=== PATIENT | female | born 1990 | race Caucasian/White ===

== ENCOUNTER → 2017-06-05 | Outpatient (CLI) | payer BC | LOC: OD 11:04 | PROVIDERS: ATTEND Nurse Practitioner Primary Care | DX: N91.2 Amenorrhea, unspecified (principal); N93.8 Other specified abnormal uterine and vaginal bleeding | CPT/HCPCS: 36415; 84702 ==

== ENCOUNTER → 2017-09-17 | Outpatient (CLI) | payer BC | LOC: OD 13:51 | PROVIDERS: ATTEND Nurse Practitioner Primary Care | DX: O20.0 Threatened abortion (principal); Z3A.00 Weeks of gestation of pregnancy not specified | CPT/HCPCS: 36415; 84702 ==

== ENCOUNTER → 2017-09-20 | Outpatient (CLI) | payer BC | LOC: OD 09:35 | PROVIDERS: ATTEND Nurse Practitioner Primary Care | DX: O20.0 Threatened abortion (principal); Z3A.00 Weeks of gestation of pregnancy not specified | CPT/HCPCS: 36415; 84702 ==

== ENCOUNTER 2018-04-29 00:37 | Inpatient (IN) | payer BC, MEDICAID ==
[2018-04-29 01:20] LABS: APPEARANCE,URINE CLOUDY; BILIRUBIN,URINE NEGATIVE (NEGATIVE); COLOR,URINE YELLOW; GLUCOSE, URINE NEGATIVE (NEGATIVE); KETONES,URINE NEGATIVE (NEGATIVE); LEUKOCYTE ESTERASE,URINE LARGE (NEGATIVE); NITRITE,URINE NEGATIVE (NEGATIVE); PROTEIN,URINE NEGATIVE (NEGATIVE); URINE SPECIFIC GRAVITY 1.005; UROBILINOGEN,URINE NEGATIVE mg/dL (<2.0)
[2018-04-29] MEDS ORDERED: RINGERS SOLUTION,LACTATED 1,000 ML IV ONE (01:25)
[2018-04-29] MEDS ORDERED: CEFAZOLIN 2 GM/D5W RTU 2 GM/50 ML RTUPB IV ONE ×2 (01:25→03:19)
[2018-04-29] MEDS ORDERED: PENICILLIN G POTASSIUM 5,000,000 UNIT in DEXTROSE 5%-WATER 100 ML IV ONE (01:25)
[2018-04-29 01:26] LABS: URINE AMPHETAMINES SCREEN NEGATIVE; URINE BARBITURATES SCREEN NEGATIVE; URINE BENZODIAZEPINES SCREEN NEGATIVE; URINE COCAINE SCREEN NEGATIVE; URINE MARIJUANA (THC) SCREEN NEGATIVE; URINE METHADONE SCREEN NEGATIVE; URINE PHENCYCLIDINE SCREEN NEGATIVE
[2018-04-29] MEDS ORDERED: CEFAZOLIN INJ 1 GM VIAL IV ONE (01:36)
--- NOTE | 2018-04-29 01:37 | Admission Physical ---
Datetime Report Generated by CPN: 04/29/2018 01:36 CURRENT ADMISSION Chief Complaint: Suspected Ruptured Membranes Indication for Induction: Not Applicable Admit Impression : Term, Intrauterine ; No Active Labor; Ruptured Membranes Admit Plan: Admit to Unit; Initiate Section Protocol ALLERGIES Medication Allergies: Yes Medication Allergies: hydrocodone bitartrate (12/14/2012) Latex: No Latex Allergies OBSTETRICAL HISTORY EDC: 05/10/2018 00:00 : 3 Term: 2 Ectopic: 0 Livin Cesareans: 2 VBACs: 0 Multiple Births: 0 Gestational Diabetes: Yes Rh Sensitization: No Incompetent Cervix: No KAREN: No Infertility: No ART Treatment: No Uterine Anomaly: No IUGR: No Hx Previous C/S: Yes Macrosomia: No Hx Loss/Stillborn: No PIH: No Hx : No Placenta Previa/Abruption: No Depression/PP Depression: Yes PTL/PROM: No Post Hemorrhage: No Current Procedures: BPP SEE RECORDS Alcohol: No Marijuana : No Cocaine: No Other Illicit Drugs: No Cigarettes: Never Smoker. [id number] MEDICAL HISTORY Diabetes: No Diabetes Type: Gestational Diabetes Blood Transfusion: No Pulmonary Disease (Asthma, TB): Yes Breast Disease: No Hypertension: No Technical Developer Surgery: Yes Heart Disease: No Hosp/Surgery: Yes Autoimmune Disorder: Yes Anesthetic Complications: No Kidney Disease: No Abnormal Pap Smear: No Neuro/Epilepsy: No Psychiatric Disorders: Yes Other Medical Diseases: No Hepatitis/Liver Disease: No Significant Family History: No Varicosities/Phlebitis: No Trauma/Violence : No Thyroid Dysfunction: Yes Medical History Comments: hoshimoto disease, anxiety, depression, depression, hyperthyroidism, previous x2 INFECTIOUS HISTORY Gonorrhea: No Genital Herpes: No Chlamydia: No Tuberculosis: No Syphilis: No Hepatitis: No HIV/AIDS Exposure: No Rash or Viral Illness: No HPV: No PHYSICAL EXAM General: Normal HEENT: Normal Neurologic: Normal Thyroid: Deferred Heart: Normal Lungs: Normal Breast: Deferred Back: Normal Abdomen: Normal Genitourinary Exam: Normal Extremities: Normal DTRs: Normal Pelvic Type: Adequate Vital Signs: Reviewed VAGINAL EXAM Dilatation: 1 Effacement: 25 Station: -4 Contraction Comments: none MEMBRANES Membranes: Ruptured Amniotic Fluid Color: Clear FETUS A EGA: 38.3 Monitoring: External US FHR- Baseline: 155 Variability: Moderate 6-25bpm Accelerations: 15X15 Decelerations: None FHR Category: Category I Presentation: Vertex Admit Comment: 27yo with history of 2 prior sections presents for possible SROM. A2GDM on Glyburide. Pt with h/o C/S due to Arrest of Descent and also 2nd for macrosomia. She also reports that this is a big baby. GBS unknown due to no records available from [facility] at this time. Will obtain records when office opens or computer fixed. Undecided regarding BTL therefore no BTL today. PCN for GBS unknown. Pt is not betito. Last intake was 1130 and was kitkats. S/w anesthesia will await NPO and proceed with section at 0500 - sooner if active labor. reassuring FWB and CAT I FHRT at this time. PLANS FOR LABOR AND DELIVERY Pain Management: Spinal Feeding Preference: Breast Benefit of Breast Feed Discussed: Yes Circumcision: No INFORMED CONSENT Informed Consent Obtained: Section Delivery; Risks, Benefits and Alternatives Discussed Signature: with User ID: [email or web address]
[2018-04-29] MEDS ORDERED: PENICILLIN G-K 5 MILLION UNIT VIAL ONE (01:48)
[2018-04-29 01:50] LABS: ABSOLUTE EOSINOPHILS # (AUTO) 0.1 10^3/uL (0.0-0.6); ABSOLUTE LYMPHOCYTES (AUTO) 1.7 10^3/uL (0.5-4.7); ABSOLUTE MONOCYTES (AUTO) 0.6 10^3/uL (0.1-1.4); ABSOLUTE NEUT (AUTO) 3.8 10^3/uL (1.7-8.2); BASOPHILS % (AUTO) 0.5 % (0-2); EOSINOPHILS % (AUTO) 1.5 % (0-6); HEMATOCRIT 26.9 % (36.0-47.0); HEMOGLOBIN 8.7 g/dL (12.0-15.5); LYMPHOCYTES % (AUTO) 26.9 % (13-45); MEAN CORPUSCULAR HEMOGLOBIN 22.4 pg (27.0-33.4); MEAN CORPUSCULAR HGB CONC 32.5 g/dL (32.0-36.0); MEAN CORPUSCULAR VOLUME 69 fl (80-97); MONOCYTES % (AUTO) 9.1 % (3-13); PLATELET COUNT 197 10^3/uL (150-450); RED BLOOD COUNT 3.91 10^6/uL (3.72-5.28); RED CELL DISTRIBUTION WIDTH 19.2 % (11.5-14.0); TOTAL CELLS COUNTED % (AUTO) 100 %; WHITE BLOOD COUNT 6.2 10^3/uL (4.0-10.5)
[2018-04-29] MEDS: RINGERS SOLUTION,LACTATED 1,000 ML IV PRN ×3 (02:08→15:43)
[2018-04-29] MEDS ORDERED: CEFAZOLIN 1 GM/D5W RTU 1 GM/50 ML RTUPB IV ONE (03:18)
[2018-04-29] MEDS ORDERED: CITRIC ACID/SODIUM CITRATE ORAL SOLN 15 ML UDCUP ONE (03:18)
[2018-04-29] MEDS ORDERED: BUPIVACAINE HCL 0.25 % INJ/PF (2.5 MG/1 ML) 30 ML VIAL ONE (03:19)
[2018-04-29] MEDS ORDERED: EPHEDRINE SULFATE INJ 50 MG/1 ML AMPULE ONE (03:19)
[2018-04-29] MEDS ORDERED: FENTANYL/BUPIVACAINE/NS/PF 300 MCG/150 ML RTUINJ EPI ONE (03:19)
[2018-04-29] MEDS ORDERED: LIDOCAINE 2% INJ-PF (20 MG/ML) 10 ML AMPUL ONE (03:19)
[2018-04-29] MEDS ORDERED: PENICILLIN G POTASSIUM 2,500,000 UNIT in DEXTROSE 5%-WATER 50 ML IV SCH (05:26)
[2018-04-29] MEDS ORDERED: FENTANYL CITRATE INJ/PF 100 MCG/2 ML AMPUL IV PRN ×3 (05:46)
[2018-04-29] MEDS ORDERED: PROMETHAZINE HCL INJ 25 MG/1 ML VIAL IV PRN ×2 (05:46→07:06)
[2018-04-29] MEDS ORDERED: MEPERIDINE HCL/PF INJ 25 MG/1 ML DISP.SYRIN IV PRN (05:46)
[2018-04-29] MEDS ORDERED: DIPHENHYDRAMINE HCL 50 MG/ML VIAL IV PRN (05:46)
--- NOTE | 2018-04-29 06:12 | Warning Signs in Babies ---
VOD Warning Signs Datetime Report Generated by [facility]: 04/29/2018 06:12 VOD#608 -Warning Signs in Babies: Needs to be viewed. (04/29/2018 00:57:Didi Ha RN)
[2018-04-29] MEDS ORDERED: BUPIVACAINE HCL 0.5 % INJ/PF 30 ML SDV ONE (06:26)
[2018-04-29] MEDS ORDERED: ACETAMINOPHEN 325 MG TABLET PO PRN (07:06)
[2018-04-29] MEDS ORDERED: SIMETHICONE 80 MG TAB.CHEW PO PRN (07:06)
[2018-04-29] MEDS ORDERED: OXYTOCIN/NORMAL SALINE 20 UNIT/1,000 ML RTUINJ IV PRN (07:06)
[2018-04-29] MEDS ORDERED: OXYCODONE-ACETAMINOPHEN 5-325 MG TABLET PO PRN (07:06)
[2018-04-29] MEDS ORDERED: MEASLES,MUMPS&RUBELLA VACC/PF 0.5 ML VIAL SUBCUT PRN (07:06)
[2018-04-29] MEDS ORDERED: DIPH/PERTUSS(ACELL)/TETANUS VAC/PF 0.5 ML SYR (>=10YO) IM PRN (07:06)
[2018-04-29] MEDS ORDERED: ACETAMINOPHEN 1,000 MG/100 ML RTUPB IV PRN (07:06)
[2018-04-29] MEDS ORDERED: HYDROMORPHONE HCL INJ/PF 2 MG/ML AMPULE IV PRN (07:06)
--- NOTE | 2018-04-29 07:06 | Brief Operative Note ---
BRIEF OPERATIVE REPORT DATE OF SURGERY: 04/29/18 TIME OF SURGERY: 07:00 PREOPERATIVE DIAGNOSIS: A2GDM, PUND at 38+2ega, H/o section x 2, Macrosomia, PROM. POSTOPERATIVE DIAGNOSIS: CARRIE- delivered, Significant pelvic adhesive disease SURGEON: BRII RAMIREZ FINDINGS: anterior abdominal wall adhered to anterior uterus fundus and bladder adhered to lower uterine segment. Dense adhesions. VMI, Apgars 9/9, time of 0551, weight 10#5oz. IVF 600ml, UOP 300ml, 3 grams of Ancef COMPLICATIONS: none ESTIMATED BLOOD LOSS: 500ml TISSUE REMOVED OR ALTERED: placenta and cord not sent to pathology TECHNICAL PROCEDURE: Repeat section, Scar revision
--- NOTE | 2018-04-29 07:16 | Operative Report ---
Operative Report DATE OF SURGERY: 04/29/18 PREOPERATIVE DIAGNOSIS: A2GDM, PUND at 38+2ega, H/o section x 2, Macro somia, PROM. POSTOPERATIVE DIAGNOSIS: CARRIE- delivered, Significant pelvic adhesive disease OPERATION: Repeat section, Scar revision SURGEON: BRII RAMIREZ ANESTHESIA: Epidural TISSUE REMOVED OR ALTERED: placenta and cord not sent to pathology COMPLICATIONS: None ESTIMATED BLOOD LOSS: 804 INTRAOPERATIVE FINDINGS: anterior abdominal wall adhered to anterior uterus fundus and bladder adhered to lower uterine segment. Dense adhesions. VMI, Apgars 9/9, time of 0551, weight 10#5oz. IVF 600ml, UOP 300ml, 3 grams of Ancef PROCEDURE: Anesthesia: Spinal Anesthesia provider: [Stephanie YOUNGBLOOD, Natasha Daugherty CRNA] Urine output: [300ml] IV fluids: [600ml] Indications: [27yo at 38+2ega presents with premature rupture of membranes and cervix /. She has undecided regarding contraception but does not want a tubal ligation at this time. She has had two prior sections. She was counseled regarding the risks, benefits, alternatives and desires to proceed with planned procedure.] Procedure: The patient was taken to the operating room where epidural anesthesia was obtained and found to be adequate. She was then prepped and draped in the normal sterile fashion and placed in the dorsal supine position with a leftward tilt. A Pfannenstiel skin incision was then made and carried through to the underlying layers of the fascia with the scalpel. The fascia was incised in the midline and the incision extended laterally with the Loo scissors. The superior aspect of the fascial incision was then grasped with Forest clamps elevated and the underlying rectus muscles dissected off [sharply] rectus muscles were also sharply dissected from the underlying dense adhesions to the anterior uterine body. Attention was then turned to the inferior aspect of the fascial incision which in a similar fashion was grasped, tented up with Forest clamps, and the rectus muscles dissected off [sharply]. The rectus muscles were then in the midline and the peritoneum at the amount identified and entered [sharply]. The peritoneal incision was then extended superiorly and inferiorly with good visualization of the bladder. The bladder blade was inserted and the vesicouterine peritoneum identified grasped with Estonian pickups and entered sharply with the Metzenbaum scissors. This incision was then extended laterally with the Metzenbaum scissors and a bladder flap created digitally. The bladder blade was then reinserted and the lower uterine segment incised in a transverse fashion with the scalpel. The uterine incision was then extended bluntly. The bladder blade was removed and the infant's head was delivered from cephalic presentation atraumatically. The nose and mouth were suctioned and the cord doubly clamped and cut. And the infant was handed off to waiting pediatricians. The placenta was then delivered spontaneously and the uterus exteriorized and cleared of all clots and debris. The uterine incision was then repaired with 1- 0 Vicryl in a running locked fashion. A second layer of the same suture was used to obtain hemostasis via imbrication of the initial layer. The bladder flap was then repaired with 3-0 chromic in a running fashion. The uterus was returned to the patient's abdomen and Interceed was placed overlying the uterine incision to prevent adhesions. The gutters were cleared of all clots and debris. All operative sites were noted to be hemostatic. The fascia was reapproximated with 0 Vicryl in a running fashion from each lateral edge to the midline. The skin was closed with 3-0 Monocryl in a running subcuticular fashion with overlying Dermabond for additional dressing as well as wound closure. The patient tolerated the procedure well. Sponge lap needle and instrument counts are correct times 2. 3 g of Ancef were given prior to skin incision. The patient was taken to the recovery area awake and in stable condition.
[2018-04-29] MEDS ORDERED: KETOROLAC TROMETHAMINE INJ/PF 30 MG/1 ML SDV ONE (07:56)
[2018-04-29] MEDS ORDERED: ACETAMINOPHEN 1,000 MG/100 ML RTUPB IV ONE (07:56)
[2018-04-29] MEDS ORDERED: HYDROMORPHONE HCL INJ/PF 2 MG/ML AMPULE ONE (08:59)
[2018-04-29] MEDS ORDERED: KETOROLAC TROMETHAMINE INJ/PF 30 MG/1 ML SDV IV SCH (10:00)
[2018-04-29] MEDS: PRENATAL VITAMIN W DHA CAPSULE PO SCH (11:00)
[2018-04-29] MEDS: DOCUSATE SODIUM 100 MG CAPSULE PO SCH ×2 (11:01→17:11)
[2018-04-29] MEDS ORDERED: DEXAMETHASONE SOD PHOSPHATE INJ 4 MG/1 ML VIAL ONE (12:10)
[2018-04-29] MEDS ORDERED: LIDOCAINE 2% INJ-PF (20 MG/ML) 2 ML AMPUL ONE (12:10)
[2018-04-29] MEDS ORDERED: ONDANSETRON HCL INJ/PF 4 MG/2 ML SDV ONE (12:10)
[2018-04-29] MEDS: KETOROLAC TROMETHAMINE INJ/PF 30 MG/1 ML SDV IV SCH (15:41)
[2018-04-29] MEDS: OXYCODONE-ACETAMINOPHEN 5-325 MG TABLET PO PRN (20:31)
[2018-04-30] MEDS: KETOROLAC TROMETHAMINE INJ/PF 30 MG/1 ML SDV IV SCH ×2 (02:00→08:56)
[2018-04-30] MEDS ORDERED: IBUPROFEN 800 MG TABLET PO SCH (06:00)
[2018-04-30 07:21] LABS: HEMATOCRIT 25.3 % (36.0-47.0); HEMOGLOBIN 8.2 g/dL (12.0-15.5); MEAN CORPUSCULAR HEMOGLOBIN 22.5 pg (27.0-33.4); MEAN CORPUSCULAR HGB CONC 32.4 g/dL (32.0-36.0); MEAN CORPUSCULAR VOLUME 69 fl (80-97); PLATELET COUNT 181 10^3/uL (150-450); RED BLOOD COUNT 3.65 10^6/uL (3.72-5.28); RED CELL DISTRIBUTION WIDTH 19.2 % (11.5-14.0); WHITE BLOOD COUNT 7.1 10^3/uL (4.0-10.5)
--- NOTE | 2018-04-30 08:27 | Delivery Summary ---
Del Sum A-C Datetime Report Generated by CPN: 04/30/2018 08:27 DELIVERY PERSONNEL DELIVERY PERSONNEL: [id number] Delivery Doctor:: Vanesa Marroquin MD Anesthesiologist:: Kendall Brown MD NON DESTRUCTIVE TESTER:: Natasha Monson CRNA Personnel Clerks Supervisor:: Didi Ha RN Neonatal Nurse Practitioner:: Liz Jackson, GRAIN I FARMWORKER Nursery Nurse:: Rach Dumont RN MSN Laser Engineer/PROCESS TANK TENDER: Hailee Willams, Laser Engineer/PROCESS TANK TENDER: Tanya Carney, ST MATERNAL INFORMATION Delivery Anesthesia: Epidural Medications After Delivery: Pitocin Drip 20 Units/1000ml NSS Maternal Complications: Other Complication Details: repeat csection , GDMA2 LABOR SUMMARY EDC: 05/10/2018 00:00 No. Babies in Womb: 1 Attempted: No Labor Anesthesia: Epidural LABOR INFORMATION Reason for Induction: Not Applicable Oxytocin: N/A Group B Beta Strep: unknown Antibiotics # of Doses: 1 Antibiotics Time of Last Dose: 207 Name of Antibiotic Given: PCN Steroids Given: None Reason Steroids Not Administered: Not Applicable MEMBRANES Membranes Rupture Method: Spontaneous Rupture of Membranes: 04/29/2018 00:57 Length of Rupture (hr): 4.90 Amniotic Fluid Color: Clear Amniotic Fluid Amount: Small Amniotic Fluid Odor: Normal STAGES OF LABOR Stage 3 hr: 0 Stage 3 min: 2 VAGINAL DELIVERY Episiotomy: None Laceration #1: None Laceration Extension #1: N/A Laceration Repair: Not Applicable Sponge Count Correct: N/A CSECTION DELIVERY Primary Indication: Repeat Elective CSection Urgency: Non-Scheduled CSection Incidence: Repeat Labor: No Labor Elective: Nonelective CSection Incision: Lower Uterine Transverse BABY A INFORMATION Infant Delivery Date/Time: 04/29/2018 05:51 Method of Delivery: Born in Route : No : N/A Forceps: N/A Vacuum Extraction: N/A Shoulder Dystocia : No PRESENTATION/POSITION BABY A Presentation: Cephalic Cephalic Presentation: Vertex Vertex Position: Left Occipital Anterior Breech Presentation: N/A PLACENTA INFORMATION BABY A Placenta Delivery Time : 04/29/2018 05:53 Placenta Method of Delivery: Manual Removal Placenta Status: Delivered SCORES BABY A Heart Rate 1 min: >100 bpm Resp Effort 1 min: Good Cry Reflex Irritability 1 min: Cough or Sneeze or Pulls Away Muscle Tone 1 min: Active Motion Color 1 min: Body Winner, Extremities Blue Resuscitation Effort 1 min: Tactile Stimulation SCORE 1 MIN: 9 Heart Rate 5 min: >100 bpm Resp Effort 5 min: Good Cry Reflex Irritability 5 min: Cough or Sneeze or Pulls Away Muscle Tone 5 min: Active Motion Color 5 min: Body Winner, Extremities Blue Resuscitation Effort 5 min: N/A SCORE 5 MIN: 9 INFANT INFORMATION BABY A Gestational Age at Delivery: 38.3 Gestational Status: Early Term- 37- 38.6 Weeks Outcome : Liveborn Condition : Stable Infant Sex: Male IDENTIFICATION BABY A Verification Date/Time: 04/29/2018 06:09 Verification Date/Time: 04/29/2018 06:06 ID Band Number: [id number] Mother's Name Verified: Yes Mother's Name Verified: Yes Infant RN Verifying Infant: rn sandrine RN Verifying Infant: Edwin Sandhu RN, RN Additional Verifying Personnel: richy ha WEIGHT/LENGTH BABY A Birthweight (gm): 4755 Infant Weight (lb): 10 Infant Weight (oz): 8 Infant Length (in): 21.00 Infant Length (cm): 53.34 CORD INFORMATION BABY A No. Cord Vessels: 3 Nuchal Cord : N/A Cord Blood Taken: Yes-For Storage (Mom's Blood type +) Infant Suction: Mouth; Nose ASSESSMENT BABY A Infant Complications: None Physical Findings at Delivery: Within Normal Limits Infant Respirations: Appears Normal Skin to Skin: Yes Manager Community Outreach/ALS Called : Yes Infant Care By: Edwin Dumont RN Transferred To: Nursery BABY B INFORMATION : N/A
[2018-04-30] MEDS: PRENATAL VITAMIN W DHA CAPSULE PO SCH (09:05)
[2018-04-30] MEDS: DOCUSATE SODIUM 100 MG CAPSULE PO SCH ×2 (09:05→17:26)
--- NOTE | 2018-04-30 10:51 | PDOC PROGRESS REPORT ---
Subjective-OB Progress Note for:: 04/30/18 - POD #1, doing well, UOB, no complaints, s/p Rpt , , O+, rubella immune Subjective: Hx GDM this Physical Exam (OB) Vital Signs: Temp Pulse Resp BP Pulse Ox 97.4 F 95 16 116/61 99 04/30/18 07:54 04/30/18 07:54 04/30/18 00:00 04/30/18 07:54 04/30/18 07:54 Intake & Output 04/29/18 04/30/18 05/01/18 06:59 06:59 06:59 Intake Total 110 3456 Output Total 1425 Balance 110 2031 Weight 123.1 kg - General General Appearance: Appears well, Alert - PIH/Pre-Eclampsia Clonus: Negative Headache: Absent Epigastric Pain: No Visual Changes: No - Dressing Removed: No Incision: Well Approximated Closure Type: Surgical Glue - Lochia Lochia Amount: Scant < 10 ml Lochia Color: Rubra/Red - Abdomen Description: Soft, Round Hernia Present: No Fundal Description: Firm, Midline Fundal Height: u/u - u/2 - HEENT Eyes: Normal Ears: Normal - Respiratory Respiratory Status: No respiratory distress Breath sounds: Clear - Cardiovascular Rhythm: Regular Heart Sounds: Normal auscultation - Abdominal Inspection: Normal Distension: No distension Tenderness: Nontender Abdominal Notes: +bowel sounds noted - Genitourinary Genitourinary Note: voiding - Extremities Upper extremity: Normal inspection Lower extremities: Edema Calf: Normal, Other - no pain - Neurological Cognition: Normal Orientation: AAOx4 - Psychological Associated symptoms: Normal affect, Normal mood - Skin Skin Temperature: Warm Skin Moisture: Dry Objective-Diagnostic Laboratory: 04/30/18 06:53 04/30/18 06:53 WBC 7.1 RBC 3.65 L Hgb 8.2 L Hct 25.3 L MCV 69 L MCH 22.5 L MCHC 32.4 RDW 19.2 H Plt Count 181 Assessment and Plan(PN) - Assessment and Plan (1) Anemia, Is this a current diagnosis for this admission?: Yes (2) Gestational diabetes mellitus (GDM) controlled on oral hypoglycemic drug Qualifiers: Trimester: third trimester Qualified Code(s): O24.415 - Gestational diabetes mellitus in , controlled by oral hypoglycemic drugs Is this a current diagnosis for this admission?: Yes (3) History of section, low transverse Is this a current diagnosis for this admission?: Yes (5) Premature rupture of membranes Qualifiers: PROM gestational age: full term Is this a current diagnosis for this admission?: Yes (6) Status post repeat low transverse section Is this a current diagnosis for this admission?: Yes - Time Spent with Patient Time with patient: Less than 15 minutes Medications reviewed and adjusted accordingly: Yes - Disposition Anticipated Discharge: Home Within: within 48 hours
[2018-04-30] MEDS: FERROUS SULFATE 325 MG TABLET PO SCH (11:32)
[2018-04-30] MEDS: IBUPROFEN 800 MG TABLET PO SCH ×2 (17:25→21:00)
[2018-04-30] MEDS: OXYCODONE-ACETAMINOPHEN 5-325 MG TABLET PO PRN (23:59)
[2018-05-01] MEDS: IBUPROFEN 800 MG TABLET PO SCH ×2 (03:00→09:05)
[2018-05-01] MEDS: PRENATAL VITAMIN W DHA CAPSULE PO SCH (09:04)
[2018-05-01] MEDS: FERROUS SULFATE 325 MG TABLET PO SCH (09:05)
[2018-05-01] MEDS: DOCUSATE SODIUM 100 MG CAPSULE PO SCH (09:05)
--- NOTE | 2018-05-01 12:29 | PDOC DISCHARGE SUMMARY ---
Final Diagnosis Discharge Date: 05/01/18 - Final Diagnosis (1) Status post repeat low transverse section Is this a current diagnosis for this admission?: Yes (2) Macrosomia Is this a current diagnosis for this admission?: Yes (3) Gestational diabetes mellitus (GDM) controlled on oral hypoglycemic drug Is this a current diagnosis for this admission?: Yes (4) History of section, low transverse Is this a current diagnosis for this admission?: Yes (5) Premature rupture of membranes Is this a current diagnosis for this admission?: Yes (6) Anemia complicating , third trimester Is this a current diagnosis for this admission?: Yes Discharge Data - Discharge Medication Prescriptions: Oxycodone HCl/Acetaminophen [Percocet 5-325 mg Tablet] 2 tab PO Q4HP PRN #20 tablet PRN Reason: For Pain Scale 3-5 Ibuprofen [Motrin 800 mg Tablet] 800 mg PO Q8HP PRN #30 tablet PRN Reason: Abdominal Cramping Docusate Sodium [Colace 100 mg Capsule] 100 mg PO BID #60 capsule Ferrous Sulfate [Feosol 325 mg Tablet] 325 mg PO BID #60 tablet Vit/Dha [ Multi + Dha Capsule] 1 cap PO DAILY #60 capsule Home Medications: Docusate Sodium [Colace 100 mg Capsule] 100 mg PO BID #60 capsule 05/01/18 Ferrous Sulfate [Feosol 325 mg Tablet] 325 mg PO BID #60 tablet 05/01/18 Ibuprofen [Motrin 800 mg Tablet] 800 mg PO Q8HP PRN #30 tablet 05/01/18 Oxycodone HCl/Acetaminophen [Percocet 5-325 mg Tablet] 2 tab PO Q4HP PRN #20 tablet 05/01/18 Vit/Dha [ Multi + Dha Capsule] 1 cap PO DAILY #60 capsule 05/01/18 Reason(s) for Admission: PROM Procedures: Ultrasound Intrapartum Procedure(s): : Low Cervical, Transverse - Diagnosis Test Laboratory: Temp Pulse Resp BP Pulse Ox 98.2 F 84 18 126/68 H 99 05/01/18 07:38 05/01/18 07:38 05/01/18 07:38 05/01/18 07:38 05/01/18 07:38 04/29/18 04/29/18 04/30/18 00:44 01:37 06:53 RBC 3.91 3.65 L Hgb 8.7 L 8.2 L Hct 26.9 L 25.3 L Urine Opiates Screen NEGATIVE - Discharge information/Instructions Discharge Activity: Activity As Tolerated, Balance Activity w/Rest, No Lifting/Push/Pulling, Pelvic Rest, No tub bath, Walk Frequently Discharge Diet: As Tolerated, Regular Disposition: HOME, SELF-CARE Follow up with: [facility] in: 1, Weeks - incision check
[2018-05-01 12:42] VITALS: BP 130/68
== END 2018-05-01 14:59 | disposition home or self-care (01) | DRG 788 ==
LOC: LC 00:37 → LR 01:28 → 2S 09:37
PROVIDERS: ADMIT Student in an Organized Health Care Education/Training Program; ATTEND Student in an Organized Health Care Education/Training Program
PROC: 10D00Z1 Extraction of Products of Conception, Low, Open Approach (ICD-10-PCS; principal; 2018-04-29)
DX: O34.211 Maternal care for low transverse scar from previous cesarean delivery (principal); N85.8 Other specified noninflammatory disorders of uterus; O99.284 Endocrine, nutritional and metabolic diseases complicating childbirth; E05.90 Thyrotoxicosis, unspecified without thyrotoxic crisis or storm; O99.52 Diseases of the respiratory system complicating childbirth; J45.909 Unspecified asthma, uncomplicated; O24.425 Gestational diabetes mellitus in childbirth, controlled by oral hypoglycemic drugs; O62.1 Secondary uterine inertia; O36.63X0 Maternal care for excessive fetal growth, third trimester, not applicable or unspecified; O42.02 Full-term premature rupture of membranes, onset of labor within 24 hours of rupture; O99.214 Obesity complicating childbirth; O99.344 Other mental disorders complicating childbirth; F41.8 Other specified anxiety disorders; E66.9 Obesity, unspecified; Z3A.38 38 weeks gestation of pregnancy; Z37.0 Single live birth
CPT/HCPCS: 1961; 36415; 80307; 81001; 84112; 85025; 85027; 86592; 86850; 86900; 86901; 94799; J0131; J0690; J1100; J1170; J1885; J2405; J2540; J3010; J3490; J7120

== ENCOUNTER 2019-12-20 18:46 | Emergency (ER) | payer BC, MEDICAID ==
[2019-12-20] MEDS ORDERED: ACETAMINOPHEN 325 MG TABLET PO ONE ×2 (19:31)
[2019-12-20] MEDS ORDERED: NORMAL SALINE 1000 ML 1,000 ML IV ONE (19:40)
--- NOTE | 2019-12-20 19:43 | ER Document Report ---
ED General - General Stated Complaint: COUGH, CONGESTION, CHILLS Primary Care Provider: BRII RAMIREZ MD [Primary Care Provider] - Follow up as needed Notes: Patient is a 28-year-old white female with a history of asthma Mary's and 3 prior C-sections who presents the emergency department with a chief complaint of of fever chills and cough. She reports couple days ago she started feeling generally unwell was achy and fatigued. She states that she developed chills and went home from work. She states that she is had fevers that wax and wane. She has been taking Tylenol Cold and sinus. She states she was feeling better today around 1 PM and went to work. She states while at work she started feeling ill again with chills and decided to leave. She states her last dose of Tylenol was 11 AM this morning. She states given the persistent nature of sym ptoms she decided to present for evaluation. She denies any recent travel or known sick contacts. States no one else at work is ill. She works with the public at a restaurant. She denies any chest pain or abdominal pain. Denies any vomiting or diarrhea. Denies any urinary complaints or changes. No rashes. She does admit to a mild frontal headache that waxes and wanes. Denies any neck or back pain. No visual disturbances. No dizziness. TRAVEL OUTSIDE OF THE [place] IN LAST 30 DAYS: No - Related Data Allergies/Adverse Reactions: hydrocodone bitartrate [From Vicodin] Adverse Reaction (Verified 12/14/12 01:32) Past Medical History - Social History Smoking Status: Unknown if Ever Smoked Family History: Other - Migraine Pulmonary Medical History: Reports: Hx Asthma Endocrine Medical History: Reports: Hx Hypothyroidism Past Surgical History: Reports: Hx Section - x2, Hx Oral Surgery - wisdom teeth - Immunizations Immunizations up to date: Yes Hx Diphtheria, Pertussis, Tetanus Vaccination: Yes Review of Systems - Review of Systems Constitutional: Fever EENT: denies: Throat pain Cardiovascular: denies: Syncope Respiratory: denies: Short of breath Gastrointestinal: denies: Vomiting Genitourinary: denies: Pain Female Genitourinary: denies: Vaginal discharge Musculoskeletal: denies: Neck pain Skin: denies: Lesions Hematologic/Lymphatic: denies: Easy bruising Neurological/Psychological: denies: Seizure Physical Exam - Vital signs Vitals: Temp Pulse Resp BP Pulse Ox 101.2 F H 138 H 16 119/54 L 100 12/20/19 18:58 12/20/19 18:58 12/20/19 18:58 12/20/19 18:58 12/20/19 18:58 - General General appearance: Appears well, Alert In distress: None - HEENT Head: Normocephalic, Atraumatic Eyes: Normal Conjunctiva: Normal Extraocular movements intact: Yes Pupils: PERRL Ears: Normal External canal: Normal Tympanic membrane: Normal Nasal: Normal Mouth/Lips: Normal Pharynx: Normal Neck: Normal - Respiratory Respiratory status: No respiratory distress Chest status: Nontender Breath sounds: Normal Chest palpation: Normal - Cardiovascular Rhythm: Regular Heart sounds: Normal auscultation - Neurological Neuro grossly intact: Yes Cognition: Normal Orientation: AAOx4 - Psychological Associated symptoms: Normal affect, Normal mood - Skin Skin Temperature: Warm Skin Moisture: Dry Skin Color: Normal Course - Re-evaluation Re-evalutation: 12/20/19 21:17 Reevaluation of the patient at this time, she is resting company in the room. She states "I feel much better now". Vitals have significantly improved. She is nontoxic and in no acute distress. Her x-ray showing a left lower lobe pneumonia. Normal white count. Negative flu swabs. Pending COVID-19 test. Possible COVID-19 etiology but will treat with antibiotics until COVID-19 test returns. Patient was discussed with that she is now a patient under investigation for COVID-19 and she will self isolate and quarantine in her home until a negative result is found or until she is given further guidance with a positive result. I counseled her regarding the importance of outpatient follow- up and advised that she return here or any ER immediately with any new, persist ent or worsening symptoms. She verbalized understood and agreed. - Vital Signs Vital signs: Temp Pulse Resp BP Pulse Ox 101.2 F H 138 H 26 H 116/67 96 12/20/19 18:58 12/20/19 18:58 12/20/19 21:00 12/20/19 20:01 12/20/19 21:00 - Laboratory Result Diagrams: 12/20/19 20:00 12/20/19 20:00 Laboratory results interpreted by me: 12/20/19 12/20/19 20:00 20:00 MCV 79 L MCH 26.3 L RDW 17.3 H Plt Count 144 L Lymph % (Auto) 5.9 L [place] % (Auto) 14.1 H Seg Neutrophils % 79.8 H Sodium 133.1 L Glucose 131 H Discharge - Discharge Clinical Impression: Person under investigation for COVID-19 Pneumonia Qualifiers: Pneumonia type: due to unspecified organism Laterality: left Lung location: lower lobe of lung Qualified Code(s): J18.9 - Pneumonia, unspecified organism Condition: Stable Disposition: HOME, SELF-CARE Instructions: COVID-19 Guidance for Persons Under Investigation Additional Instructions: Please isolate and self quarantine in your home as you are considered a patient under investigation for COVID-19. You will be contacted with the results in the next 3 to 5 days on average. If it is positive you will be given further instructions regarding quarantine and further guidance. Please follow-up with your regular doctor by phone. Please return here or any ER immediately with any new, persistent or worsening symptoms. Prescriptions: Amoxicillin Trihydrate [Amoxil 500 mg Capsule] 1,000 mg PO TID 7 Days #42 capsule Azithromycin [Zithromax 250 mg Tablet] 250 mg PO ASDIR PRN #4 tablet PRN Reason: Referrals: BRII RAMIREZ MD [Primary Care Provider] - Follow up as needed
--- NOTE | 2019-12-20 20:14 | RADIOLOGY REPORT (SQ) ---
CLINICAL INDICATION: cough fever. TECHNIQUE: A single portable AP view was obtained of the chest at 1950 hours. COMPARISON: None. FINDINGS: The cardiomediastinal silhouette is normal. The lungs demonstrate streaky airspace disease left lung base. No evidence of effusion or pneumothorax. The visualized bones are unremarkable. IMPRESSION: Acute airspace disease left lung base, which could represent pneumonia.
[2019-12-20 20:31] LABS: ABSOLUTE LYMPHOCYTES (AUTO) 0.5 10^3/uL (0.5-4.7); ABSOLUTE MONOCYTES (AUTO) 1.1 10^3/uL (0.1-1.4); ABSOLUTE NEUT (AUTO) 6.1 10^3/uL (1.7-8.2); BASOPHILS % (AUTO) 0.1 % (0-2); EOSINOPHILS % (AUTO) 0.1 % (0-6); HEMATOCRIT 37.2 % (36.0-47.0); HEMOGLOBIN 12.3 g/dL (12.0-15.5); LYMPHOCYTES % (AUTO) 5.9 % (13-45); MEAN CORPUSCULAR HEMOGLOBIN 26.3 pg (27.0-33.4); MEAN CORPUSCULAR HGB CONC 33.1 g/dL (32.0-36.0); MEAN CORPUSCULAR VOLUME 79 fl (80-97); MONOCYTES % (AUTO) 14.1 % (3-13); PLATELET COUNT 144 10^3/uL (150-450); RED BLOOD COUNT 4.69 10^6/uL (3.72-5.28); RED CELL DISTRIBUTION WIDTH 17.3 % (11.5-14.0); SEGMENTED NEUTROPHILS % (AUTO) 79.8 % (42-78); TOTAL CELLS COUNTED % (AUTO) 100 %; WHITE BLOOD COUNT 7.7 10^3/uL (4.0-10.5)
[2019-12-20 20:39] LABS: ANION GAP 10 (5-19); BLOOD UREA NITROGEN 9 mg/dL (7-20); CALCIUM 8.6 mg/dL (8.4-10.2); CARBON DIOXIDE 24 mmol/L (22-30); CHLORIDE 99 mmol/L (98-107); GLUCOSE 131 mg/dL (75-110); POTASSIUM 3.7 mmol/L (3.6-5.0)
[2019-12-20 20:46] LABS: A TYPE INFLUENZA AG NEGATIVE (NEGATIVE); B INFLUENZA AG NEGATIVE (NEGATIVE)
[2019-12-20] MEDS ORDERED: CEFTRIAXONE INJ 1000 MG VIAL IV ONE (21:19)
[2019-12-20] MEDS ORDERED: AZITHROMYCIN INJ 500 MG VIAL IV ONE (21:19)
[2019-12-20] MEDS ORDERED: LIDOCAINE 1% INJ-PF (10 MG/ML) 30 ML SDV ONE (21:31)
[2019-12-20 23:35] VITALS: BP 113/69
== END 2019-12-20 23:30 | disposition home or self-care (01) ==
LOC: ER 18:46
DX: J18.9 Pneumonia, unspecified organism (principal); R50.9 Fever, unspecified; Z20.828 Contact with and (suspected) exposure to other viral communicable diseases
CPT/HCPCS: 99284; 96361; 96365; 96368; 36415; 85025; 80048; 87804; 71045; U0003; J0696; J7030; J0456; C9803; 87635